=== PATIENT | male | born 1965 | race Caucasian/White ===

== ENCOUNTER 2017-12-31 11:59 | Inpatient (IN) | payer BC ==
[~2017-12-31] VITALS: Ht 182.9 cm; Wt 95.1 kg
[2017-12-31] MEDS ORDERED: normal saline 1000ML IV soln IV ONE (12:20)
[2017-12-31 12:47] LABS: BASOPHILS % (AUTO) 0.4 % (0-1); EOSINOPHILS # (AUTO) 0.3 X10'3 (0-0.9); EOSINOPHILS % (AUTO) 2.3 % (0-6); HEMATOCRIT 51.6 % (42.0-52.0); HEMOGLOBIN 17.4 g/dl (14.0-17.9); LYMPHOCYTES # (AUTO) 1.1 X10'3 (1.1-4.8); LYMPHOCYTES % (AUTO) 9.6 % (21-51); MEAN CORPUSCULAR HEMOGLOBIN 29.6 PG (27.0-31.0); MEAN CORPUSCULAR HGB CONC 33.8 % (33.0-36.5); MEAN CORPUSCULAR VOLUME 87.7 FL (78-98); MEAN PLATELET VOLUME 8.8 FL (7.4-10.4); MONOCYTES # (AUTO) 0.5 X10'3 (0-0.9); MONOCYTES % (AUTO) 4.7 % (2-12); NEUTROPHILS # (AUTO) 9.3 X10'3 (1.8-7.7); PLATELET COUNT 266 X10'3 (140-440); RED BLOOD COUNT 5.88 X10'6 (4.70-6.10); RED CELL DISTRIBUTION WIDTH 15.6 % (11.5-14.5); WHITE BLOOD COUNT 11.2 X10'3 (4.5-11.0)
[2017-12-31] MEDS ORDERED: metoprolol tartrate 1mg/ml inj IV ONE (13:05)
[2017-12-31 13:10] LABS: ALANINE AMINOTRANSFERASE 29 U/L (12-78); ALBUMIN 3.5 G/DL (3.4-5.0); ALBUMIN/GLOBULIN RATIO 0.8 (1.1-1.5); ALKALINE PHOSPHATASE 107 IU/L (46-116); ANION GAP 14 (8-16); ASPARTATE AMINO TRANSFERASE 17 U/L (10-37); BILIRUBIN,TOTAL 0.9 MG/DL (0.1-1.0); BLOOD UREA NITROGEN 33 MG/DL (7-18); BUN/CREATININE RATIO 17.6 (5.4-32.0); CALCIUM 9.6 MG/DL (8.5-10.1); CHLORIDE 107 MMOL/L (99-107); CREATINE KINASE 89 U/L (39-308); CREATININE 1.88 MG/DL (0.60-1.10); ETHANOL < 0.010 GM/DL (0.0-0.010); GLUCOSE 133 MG/DL (70-104); POTASSIUM 3.6 MMOL/L (3.5-5.1); SODIUM 142 MMOL/L (135-145); TOTAL CARBON DIOXIDE 20.7 MMOL/L (24-32); TOTAL PROTEIN 7.7 G/DL (6.4-8.2); eGFR 38 ML/MIN
[2017-12-31] MEDS ORDERED: LORazepam 2 mg/ml vial IV ONE (13:10)
[2017-12-31 14:21] LABS: CLARITY,URINE CLEAR (Clear); COLOR,URINE STRAW (Yellow); GLUCOSE, URINE NEGATIVE (Neg); KETONES,URINE NEGATIVE (Neg); LEUKOCYTE ESTERASE ,URINE NEGATIVE (Neg); NITRITES, URINE NEGATIVE (Neg); OCCULT BLOOD,URINE NEGATIVE (Neg); PH,URINE 7.5 (4.8-8.0); PROTEIN,URINE TRACE mg/dl (Neg); UROBILINOGEN,URINE 0.2 E.U/dL (0.2-1.0)
[2017-12-31] MEDS ORDERED: cloNIDine 0.1 mg tablet PO ONE (14:25)
[2017-12-31 14:29] LABS: UA COLLECTION TYPE STRAIGHT CATH
[2017-12-31 14:31] LABS: BACTERIA,URINE NONE SEEN /HPF (Neg); RBC,URINE NONE SEEN /HPF (0-2); SQUAMOUS EPITHELIAL CELL,UR NONE SEEN /LPF (FEW); WBC,URINE 0-4 /HPF (0-4)
[2017-12-31 14:33] LABS: URINE AMPHETAMINE SCREEN NEGATIVE (Neg); URINE BARBITUATE SCREEN NEGATIVE (Neg); URINE BENZODIAZEPINES SCREEN NEGATIVE (Neg); URINE CANNABINOID SCREEN POSITIVE (Neg); URINE COCAINE SCREEN NEGATIVE (Neg); URINE METHADONE SCREEN NEGATIVE (Neg); URINE OPIATE SCREEN NEGATIVE (Neg); URINE PHENCYCLIDINE SCREEN NEGATIVE (Neg)
[2017-12-31] MEDS: niCARDipine/sod cl 20mg/200ml 200 ML IV SCH ×4 (15:51→22:15)
[2017-12-31] MEDS ORDERED: potassium Cl 20 mEq SR tablet PO PRN ×2 (16:40)
[2017-12-31] MEDS ORDERED: morphine 4 MG/ML inj SYRINge IV PRN ×2 (16:40)
[2017-12-31] MEDS ORDERED: potassium Cl 40MEQ/NS 500ml 500 ML IV PRN ×2 (16:40)
[2017-12-31] MEDS ORDERED: HYDROcodone/acetaminophen 10/325mg tab PO PRN (16:40)
[2017-12-31] MEDS ORDERED: acetaminophen 325mg tablet PO PRN (16:40)
[2017-12-31] MEDS ORDERED: niCARDipine/sod cl 20mg/200ml 200 ML IV SCH (16:40)
[2017-12-31] MEDS ORDERED: ondansetron/PF 4mg/2ml inj IV PRN (16:40)
[2017-12-31] MEDS ORDERED: NO HOME MEDS (17:49)
[2017-12-31 19:00] VITALS: BP 188/100
[2017-12-31] MEDS: amLODIPine 5mg tablet PO SCH (19:12)
[2017-12-31] MEDS: acetaminophen 325mg tablet PO PRN (19:12)
[2017-12-31 20:00] VITALS: BP 149/89
[2017-12-31 21:00] VITALS: BP 125/69
[2017-12-31] MEDS: docusate sod 100mg capsule PO SCH (21:21)
[2017-12-31] MEDS: normal saline 1000ml 1,000 ML IV SCH (21:21)
[2017-12-31] MEDS: heparin, porcine 5000 units/ml vial SQ SCH (21:33)
[2017-12-31 22:00] VITALS: BP 150/81
[2017-12-31 23:00] VITALS: BP 140/71
[2018-01-01] VITALS (25 sets, daily range): BP systolic 106–229; BP diastolic 58–123
[2018-01-01 03:13] LABS: ALANINE AMINOTRANSFERASE 25 U/L (12-78); ALBUMIN 3.1 G/DL (3.4-5.0); ALBUMIN/GLOBULIN RATIO 0.8 (1.1-1.5); ALKALINE PHOSPHATASE 94 IU/L (46-116); ANION GAP 13 (8-16); BLOOD UREA NITROGEN 23 MG/DL (7-18); CALCIUM 8.1 MG/DL (8.5-10.1); CHLORIDE 108 MMOL/L (99-107); CREATININE 1.35 MG/DL (0.60-1.10); GLUCOSE 88 MG/DL (70-104); SODIUM 144 MMOL/L (135-145); TOTAL CARBON DIOXIDE 23.1 MMOL/L (24-32); TOTAL PROTEIN 7.1 G/DL (6.4-8.2); eGFR 55 ML/MIN
[2018-01-01 03:15] LABS: ASPARTATE AMINO TRANSFERASE 23 U/L (10-37); POTASSIUM 4.1 MMOL/L (3.5-5.1)
[2018-01-01 03:16] LABS: MAGNESIUM 1.8 MG/DL (1.5-2.4); PHOSPHORUS 3.4 MG/DL (2.3-4.5); TROPONIN I < 0.04 NG/ML (0.0-0.05)
[2018-01-01 05:02] LABS: BASOPHILS % (AUTO) 0 % (0-1); EOSINOPHILS # (AUTO) 0.2 X10'3 (0-0.9); EOSINOPHILS % (AUTO) 1.6 % (0-6); HEMATOCRIT 46.9 % (42.0-52.0); HEMOGLOBIN 15.8 g/dl (14.0-17.9); LYMPHOCYTES # (AUTO) 1.8 X10'3 (1.1-4.8); LYMPHOCYTES % (AUTO) 13.6 % (21-51); MEAN CORPUSCULAR HEMOGLOBIN 29.4 PG (27.0-31.0); MEAN CORPUSCULAR HGB CONC 33.7 % (33.0-36.5); MEAN CORPUSCULAR VOLUME 87.3 FL (78-98); MEAN PLATELET VOLUME 9.4 FL (7.4-10.4); MONOCYTES # (AUTO) 0.9 X10'3 (0-0.9); MONOCYTES % (AUTO) 6.5 % (2-12); NEUTROPHILS # (AUTO) 10.4 X10'3 (1.8-7.7); NEUTROPHILS % (AUTO) 78.3 % (42-75); PLATELET COUNT 236 X10'3 (140-440); RED BLOOD COUNT 5.37 X10'6 (4.70-6.10); RED CELL DISTRIBUTION WIDTH 15.2 % (11.5-14.5); WHITE BLOOD COUNT 13.3 X10'3 (4.5-11.0)
[2018-01-01] MEDS: normal saline 1000ml 1,000 ML IV SCH (05:56)
[2018-01-01] MEDS: niCARDipine/sod cl 20mg/200ml 200 ML IV SCH ×6 (07:10→23:11)
[2018-01-01] MEDS: docusate sod 100mg capsule PO SCH ×2 (07:41→20:03)
[2018-01-01] MEDS: amLODIPine 5mg tablet PO SCH ×2 (07:41→20:03)
[2018-01-01] MEDS: heparin, porcine 5000 units/ml vial SQ SCH ×2 (07:42→20:02)
[2018-01-01] MEDS: pantoprazole 40 MG vial IV SCH (12:52)
[2018-01-01] MEDS: minoxidil 2.5mg tablet PO PRN (16:29)
[2018-01-02] VITALS (24 sets, daily range): BP systolic 112–196; BP diastolic 62–108
[2018-01-02] MEDS: normal saline 1000ml 1,000 ML IV SCH ×3 (01:44→19:02)
[2018-01-02] MEDS: niCARDipine/sod cl 20mg/200ml 200 ML IV SCH ×6 (03:50→23:19)
[2018-01-02 05:10] LABS: BASOPHILS # (AUTO) 0.1 X10'3 (0-0.2); BASOPHILS % (AUTO) 0.8 % (0-1); EOSINOPHILS # (AUTO) 0.5 X10'3 (0-0.9); EOSINOPHILS % (AUTO) 4.3 % (0-6); HEMATOCRIT 48.4 % (42.0-52.0); HEMOGLOBIN 16.3 g/dl (14.0-17.9); LYMPHOCYTES # (AUTO) 1.4 X10'3 (1.1-4.8); LYMPHOCYTES % (AUTO) 12.7 % (21-51); MEAN CORPUSCULAR HEMOGLOBIN 29.3 PG (27.0-31.0); MEAN CORPUSCULAR HGB CONC 33.6 % (33.0-36.5); MONOCYTES # (AUTO) 0.7 X10'3 (0-0.9); MONOCYTES % (AUTO) 6.4 % (2-12); NEUTROPHILS # (AUTO) 8.6 X10'3 (1.8-7.7); NEUTROPHILS % (AUTO) 75.8 % (42-75); PLATELET COUNT 266 X10'3 (140-440); RED BLOOD COUNT 5.57 X10'6 (4.70-6.10); RED CELL DISTRIBUTION WIDTH 15.2 % (11.5-14.5); WHITE BLOOD COUNT 11.3 X10'3 (4.5-11.0)
[2018-01-02 05:26] LABS: CHLORIDE 107 MMOL/L (99-107); POTASSIUM 3.4 MMOL/L (3.5-5.1)
[2018-01-02 06:01] LABS: ALANINE AMINOTRANSFERASE 29 U/L (12-78); ALBUMIN/GLOBULIN RATIO 0.8 (1.1-1.5); ALKALINE PHOSPHATASE 87 IU/L (46-116); ANION GAP 10 (8-16); ASPARTATE AMINO TRANSFERASE 18 U/L (10-37); BILIRUBIN,TOTAL 0.9 MG/DL (0.1-1.0); BLOOD UREA NITROGEN 20 MG/DL (7-18); CALCIUM 8.3 MG/DL (8.5-10.1); CREATININE 1.33 MG/DL (0.60-1.10); GLUCOSE 89 MG/DL (70-104); MAGNESIUM 1.7 MG/DL (1.5-2.4); PHOSPHORUS 2.2 MG/DL (2.3-4.5); SODIUM 140 MMOL/L (135-145); TOTAL CARBON DIOXIDE 23.2 MMOL/L (24-32); TOTAL PROTEIN 6.9 G/DL (6.4-8.2); eGFR 56 ML/MIN
[2018-01-02] MEDS: heparin, porcine 5000 units/ml vial SQ SCH ×2 (07:52→20:08)
[2018-01-02] MEDS: pantoprazole 40 MG vial IV SCH (07:52)
[2018-01-02] MEDS: amLODIPine 5mg tablet PO SCH ×2 (07:53→20:08)
[2018-01-02] MEDS: docusate sod 100mg capsule PO SCH ×2 (07:53→20:08)
[2018-01-02] MEDS ORDERED: LORazepam 2 mg/ml vial IV PRN (10:40)
[2018-01-02] MEDS: minoxidil 2.5mg tablet PO PRN (15:10)
[2018-01-02] MEDS ORDERED: labetalol 100mg tablet PO SCH (20:00)
[2018-01-02] MEDS: labetalol 100mg tablet PO SCH (20:08)
[2018-01-03] VITALS (24 sets, daily range): BP systolic 118–178; BP diastolic 64–102
[2018-01-03] MEDS: niCARDipine/sod cl 20mg/200ml 200 ML IV SCH ×5 (01:58→23:10)
[2018-01-03 04:49] LABS: BASOPHILS % (AUTO) 0.3 % (0-1); EOSINOPHILS # (AUTO) 0.3 X10'3 (0-0.9); EOSINOPHILS % (AUTO) 2.4 % (0-6); HEMATOCRIT 47.9 % (42.0-52.0); HEMOGLOBIN 16.1 g/dl (14.0-17.9); LYMPHOCYTES # (AUTO) 1.3 X10'3 (1.1-4.8); LYMPHOCYTES % (AUTO) 10.4 % (21-51); MEAN CORPUSCULAR HEMOGLOBIN 29.5 PG (27.0-31.0); MEAN CORPUSCULAR HGB CONC 33.6 % (33.0-36.5); MEAN CORPUSCULAR VOLUME 87.8 FL (78-98); MEAN PLATELET VOLUME 9.2 FL (7.4-10.4); MONOCYTES # (AUTO) 0.8 X10'3 (0-0.9); MONOCYTES % (AUTO) 6.1 % (2-12); NEUTROPHILS # (AUTO) 10.2 X10'3 (1.8-7.7); NEUTROPHILS % (AUTO) 80.8 % (42-75); PLATELET COUNT 256 X10'3 (140-440); RED BLOOD COUNT 5.46 X10'6 (4.70-6.10); RED CELL DISTRIBUTION WIDTH 14.9 % (11.5-14.5); WHITE BLOOD COUNT 12.6 X10'3 (4.5-11.0)
[2018-01-03 05:03] LABS: ALANINE AMINOTRANSFERASE 34 U/L (12-78); ALBUMIN 2.9 G/DL (3.4-5.0); ALBUMIN/GLOBULIN RATIO 0.7 (1.1-1.5); ALKALINE PHOSPHATASE 90 IU/L (46-116); ANION GAP 9 (8-16); ASPARTATE AMINO TRANSFERASE 17 U/L (10-37); BILIRUBIN,TOTAL 0.7 MG/DL (0.1-1.0); BLOOD UREA NITROGEN 23 MG/DL (7-18); BUN/CREATININE RATIO 15.2 (5.4-32.0); CALCIUM 8.7 MG/DL (8.5-10.1); CHLORIDE 108 MMOL/L (99-107); CREATININE 1.51 MG/DL (0.60-1.10); GLUCOSE 120 MG/DL (70-104); MAGNESIUM 1.8 MG/DL (1.5-2.4); PHOSPHORUS 2.5 MG/DL (2.3-4.5); POTASSIUM 3.6 MMOL/L (3.5-5.1); SODIUM 140 MMOL/L (135-145); TOTAL CARBON DIOXIDE 22.7 MMOL/L (24-32); TOTAL PROTEIN 6.9 G/DL (6.4-8.2); eGFR 49 ML/MIN
[2018-01-03] MEDS: pantoprazole 40mg Tablet.DR PO SCH (09:57)
[2018-01-03] MEDS: docusate sod 100mg capsule PO SCH ×2 (09:57→20:13)
[2018-01-03] MEDS: amLODIPine 5mg tablet PO SCH ×2 (09:57→20:14)
[2018-01-03] MEDS: labetalol 100mg tablet PO SCH ×3 (09:58→20:14)
[2018-01-03] MEDS: heparin, porcine 5000 units/ml vial SQ SCH ×2 (10:03→20:14)
[2018-01-03] MEDS: normal saline 1000ml 1,000 ML IV SCH (13:40)
[2018-01-03] MEDS: acetaminophen 325mg tablet PO PRN (18:13)
[2018-01-04] VITALS (24 sets, daily range): BP systolic 134–170; BP diastolic 68–98
[2018-01-04] MEDS: normal saline 1000ml 1,000 ML IV SCH (01:40)
[2018-01-04] MEDS: niCARDipine/sod cl 20mg/200ml 200 ML IV SCH ×2 (03:10→07:10)
[2018-01-04 05:41] LABS: BASOPHILS % (AUTO) 0.3 % (0-1); EOSINOPHILS # (AUTO) 0.3 X10'3 (0-0.9); EOSINOPHILS % (AUTO) 2.3 % (0-6); HEMOGLOBIN 15.2 g/dl (14.0-17.9); LYMPHOCYTES % (AUTO) 16.9 % (21-51); MEAN CORPUSCULAR HEMOGLOBIN 29.6 PG (27.0-31.0); MEAN CORPUSCULAR HGB CONC 33.8 % (33.0-36.5); MEAN CORPUSCULAR VOLUME 87.6 FL (78-98); MEAN PLATELET VOLUME 9.4 FL (7.4-10.4); MONOCYTES # (AUTO) 0.9 X10'3 (0-0.9); MONOCYTES % (AUTO) 7.3 % (2-12); NEUTROPHILS # (AUTO) 8.7 X10'3 (1.8-7.7); NEUTROPHILS % (AUTO) 73.2 % (42-75); PLATELET COUNT 264 X10'3 (140-440); RED BLOOD COUNT 5.14 X10'6 (4.70-6.10); RED CELL DISTRIBUTION WIDTH 15.3 % (11.5-14.5); WHITE BLOOD COUNT 11.9 X10'3 (4.5-11.0)
[2018-01-04 06:36] LABS: ALANINE AMINOTRANSFERASE 54 U/L (12-78); ALBUMIN 2.8 G/DL (3.4-5.0); ALBUMIN/GLOBULIN RATIO 0.7 (1.1-1.5); ALKALINE PHOSPHATASE 82 IU/L (46-116); ANION GAP 10 (8-16); ASPARTATE AMINO TRANSFERASE 31 U/L (10-37); BILIRUBIN,TOTAL 0.8 MG/DL (0.1-1.0); BLOOD UREA NITROGEN 23 MG/DL (7-18); BUN/CREATININE RATIO 15.5 (5.4-32.0); CALCIUM 8.7 MG/DL (8.5-10.1); CHLORIDE 107 MMOL/L (99-107); CREATININE 1.48 MG/DL (0.60-1.10); GLUCOSE 88 MG/DL (70-104); MAGNESIUM 1.8 MG/DL (1.5-2.4); PHOSPHORUS 3.1 MG/DL (2.3-4.5); POTASSIUM 3.4 MMOL/L (3.5-5.1); SODIUM 139 MMOL/L (135-145); TOTAL CARBON DIOXIDE 21.7 MMOL/L (24-32); TOTAL PROTEIN 6.7 G/DL (6.4-8.2); eGFR 50 ML/MIN
[2018-01-04] MEDS: pantoprazole 40mg Tablet.DR PO SCH (07:23)
[2018-01-04] MEDS: amLODIPine 5mg tablet PO SCH ×2 (07:23→20:37)
[2018-01-04] MEDS: labetalol 100mg tablet PO SCH ×3 (07:23→20:34)
[2018-01-04] MEDS: docusate sod 100mg capsule PO SCH ×2 (07:24→20:34)
[2018-01-04] MEDS: heparin, porcine 5000 units/ml vial SQ SCH ×2 (07:24→20:34)
[2018-01-05] VITALS (16 sets, daily range): BP systolic 122–173; BP diastolic 69–106
[2018-01-05 05:17] LABS: BASOPHILS % (AUTO) 0.3 % (0-1); EOSINOPHILS # (AUTO) 0.4 X10'3 (0-0.9); EOSINOPHILS % (AUTO) 3.7 % (0-6); HEMATOCRIT 44.8 % (42.0-52.0); HEMOGLOBIN 15.2 g/dl (14.0-17.9); LYMPHOCYTES # (AUTO) 1.7 X10'3 (1.1-4.8); LYMPHOCYTES % (AUTO) 16.3 % (21-51); MEAN CORPUSCULAR HEMOGLOBIN 29.7 PG (27.0-31.0); MEAN CORPUSCULAR HGB CONC 33.9 % (33.0-36.5); MEAN CORPUSCULAR VOLUME 87.6 FL (78-98); MEAN PLATELET VOLUME 8.7 FL (7.4-10.4); MONOCYTES # (AUTO) 0.8 X10'3 (0-0.9); MONOCYTES % (AUTO) 7.3 % (2-12); NEUTROPHILS # (AUTO) 7.5 X10'3 (1.8-7.7); NEUTROPHILS % (AUTO) 72.4 % (42-75); PLATELET COUNT 274 X10'3 (140-440); RED BLOOD COUNT 5.11 X10'6 (4.70-6.10); RED CELL DISTRIBUTION WIDTH 15.1 % (11.5-14.5); WHITE BLOOD COUNT 10.3 X10'3 (4.5-11.0)
[2018-01-05 06:00] LABS: ALANINE AMINOTRANSFERASE 81 U/L (12-78); ALBUMIN 2.7 G/DL (3.4-5.0); ALBUMIN/GLOBULIN RATIO 0.7 (1.1-1.5); ALKALINE PHOSPHATASE 80 IU/L (46-116); ANION GAP 9 (8-16); ASPARTATE AMINO TRANSFERASE 42 U/L (10-37); BILIRUBIN,TOTAL 0.7 MG/DL (0.1-1.0); BLOOD UREA NITROGEN 22 MG/DL (7-18); BUN/CREATININE RATIO 14.9 (5.4-32.0); CALCIUM 8.8 MG/DL (8.5-10.1); CHLORIDE 107 MMOL/L (99-107); CREATININE 1.48 MG/DL (0.60-1.10); GLUCOSE 97 MG/DL (70-104); MAGNESIUM 1.9 MG/DL (1.5-2.4); POTASSIUM 3.7 MMOL/L (3.5-5.1); SODIUM 139 MMOL/L (135-145); TOTAL CARBON DIOXIDE 22.6 MMOL/L (24-32); TOTAL PROTEIN 6.6 G/DL (6.4-8.2); eGFR 50 ML/MIN
[2018-01-05] MEDS: amLODIPine 5mg tablet PO SCH ×2 (08:01→20:59)
[2018-01-05] MEDS: pantoprazole 40mg Tablet.DR PO SCH (08:01)
[2018-01-05] MEDS: labetalol 100mg tablet PO SCH ×3 (08:01→20:59)
[2018-01-05] MEDS: docusate sod 100mg capsule PO SCH ×2 (08:01→20:59)
[2018-01-05] MEDS: heparin, porcine 5000 units/ml vial SQ SCH ×2 (08:02→21:01)
[2018-01-05] MEDS ORDERED: epoetin 20,000 units/ml inj SQ ONE (11:25)
[2018-01-06 06:00] VITALS: BP 155/95
[2018-01-06 06:33] LABS: BASOPHILS % (AUTO) 0.4 % (0-1); EOSINOPHILS # (AUTO) 0.4 X10'3 (0-0.9); EOSINOPHILS % (AUTO) 3.5 % (0-6); HEMOGLOBIN 15.3 g/dl (14.0-17.9); LYMPHOCYTES # (AUTO) 1.7 X10'3 (1.1-4.8); MEAN CORPUSCULAR HEMOGLOBIN 29.4 PG (27.0-31.0); MEAN CORPUSCULAR HGB CONC 33.3 % (33.0-36.5); MEAN CORPUSCULAR VOLUME 88.4 FL (78-98); MEAN PLATELET VOLUME 8.2 FL (7.4-10.4); MONOCYTES # (AUTO) 0.7 X10'3 (0-0.9); MONOCYTES % (AUTO) 6.6 % (2-12); NEUTROPHILS # (AUTO) 7.8 X10'3 (1.8-7.7); NEUTROPHILS % (AUTO) 73.5 % (42-75); PLATELET COUNT 278 X10'3 (140-440); RED CELL DISTRIBUTION WIDTH 15.4 % (11.5-14.5); WHITE BLOOD COUNT 10.6 X10'3 (4.5-11.0)
[2018-01-06 06:55] LABS: ALANINE AMINOTRANSFERASE 83 U/L (12-78); ALBUMIN 2.8 G/DL (3.4-5.0); ALBUMIN/GLOBULIN RATIO 0.7 (1.1-1.5); ALKALINE PHOSPHATASE 78 IU/L (46-116); ANION GAP 6 (8-16); ASPARTATE AMINO TRANSFERASE 35 U/L (10-37); BILIRUBIN,TOTAL 0.7 MG/DL (0.1-1.0); BLOOD UREA NITROGEN 25 MG/DL (7-18); BUN/CREATININE RATIO 16.2 (5.4-32.0); CALCIUM 8.8 MG/DL (8.5-10.1); CHLORIDE 107 MMOL/L (99-107); CREATININE 1.54 MG/DL (0.60-1.10); GLUCOSE 94 MG/DL (70-104); MAGNESIUM 1.9 MG/DL (1.5-2.4); PHOSPHORUS 3.3 MG/DL (2.3-4.5); POTASSIUM 3.6 MMOL/L (3.5-5.1); SODIUM 138 MMOL/L (135-145); TOTAL PROTEIN 6.8 G/DL (6.4-8.2); eGFR 47 ML/MIN
[2018-01-06] MEDS: heparin, porcine 5000 units/ml vial SQ SCH (08:34)
[2018-01-06] MEDS: labetalol 100mg tablet PO SCH (08:36)
[2018-01-06] MEDS: amLODIPine 5mg tablet PO SCH (08:37)
[2018-01-06] MEDS: docusate sod 100mg capsule PO SCH (08:38)
[2018-01-06] MEDS: pantoprazole 40mg Tablet.DR PO SCH (08:38)
[2018-01-06] MEDS ORDERED: MINO2.5T19 PO (09:44)
[2018-01-06] MEDS ORDERED: AMLO5TAB16 PO (09:44)
[2018-01-06] MEDS ORDERED: LABE100T PO (09:44)
== END 2018-01-06 10:30 | disposition home or self-care (01) | DRG 78 ==
LOC: ER 12:00 → ICU 2S 16:36 → ORTHO 4S 01-05 12:22
PROVIDERS: ADMIT Internal Medicine Critical Care Medicine; ATTEND Internal Medicine Critical Care Medicine
PROC: 4A02XM4 Measurement of Cardiac Total Activity, External Approach (ICD-10-PCS; principal; 2018-01-03)
PROC: 3E033HZ Introduction of Radioactive Substance into Peripheral Vein, Percutaneous Approach (ICD-10-PCS; 2018-01-03)
DX: I67.4 Hypertensive encephalopathy (principal); I43 Cardiomyopathy in diseases classified elsewhere; N17.9 Acute kidney failure, unspecified; G80.9 Cerebral palsy, unspecified; I16.0 Hypertensive urgency; N18.2 Chronic kidney disease, stage 2 (mild); I13.10 Hypertensive heart and chronic kidney disease without heart failure, with stage 1 through stage 4 chronic kidney disease, or unspecified chronic kidney disease; R50.9 Fever, unspecified; Z91.14 Patient's other noncompliance with medication regimen
CPT/HCPCS: 36415; 70450; 71045; 76775; 78707; 80053; 80305; 80320; 81001; 82140; 82550; 83605; 83735; 84100; 84145; 84484; 85025; 87040; 93005; 96361; 96374; 96375; 97116; 97161; 97530; 99291; A4353; A6213; A6449; A9562; C9113; J1644; J2060; J3490; J7030

== ENCOUNTER 2019-07-25 13:25 | Inpatient (IN) | payer BC, MEDICAID ==
[~2019-07-25] VITALS: Ht 182.9 cm; Wt 95.0 kg
[~2019-07-25 13:25] MED LIST: BUPR150T8 PO; LISI40TA4 PO
[2019-07-25] MEDS ORDERED: labetalol 20mg/4ml (5mg/ml) syringe IV ONE ×3 (15:35→16:40)
[2019-07-25 15:58] LABS: BASOPHILS # (AUTO) 0.1 X10'3 (0-0.2); BASOPHILS % (AUTO) 0.5 % (0-1); EOSINOPHILS # (AUTO) 0.5 X10'3 (0-0.9); EOSINOPHILS % (AUTO) 3.5 % (0-6); HEMATOCRIT 54.3 % (42.0-52.0); LYMPHOCYTES # (AUTO) 2.2 X10'3 (1.1-4.8); LYMPHOCYTES % (AUTO) 17.3 % (21-51); MEAN CORPUSCULAR HGB CONC 34.1 g/dL (33.0-36.5); MEAN CORPUSCULAR VOLUME 88.2 FL (78-98); MEAN PLATELET VOLUME 8.4 FL (7.4-10.4); MONOCYTES # (AUTO) 0.7 X10'3 (0-0.9); MONOCYTES % (AUTO) 5.9 % (2-12); NEUTROPHILS # (AUTO) 9.3 X10'3 (1.8-7.7); NEUTROPHILS % (AUTO) 72.8 % (42-75); PLATELET COUNT 314 X10'3 (140-440); RED BLOOD COUNT 6.15 X10'6 (4.70-6.10); RED CELL DISTRIBUTION WIDTH 15.9 % (11.5-14.5); WHITE BLOOD COUNT 12.8 X10'3 (4.5-11.0)
[2019-07-25 16:00] LABS: HEMOGLOBIN 18.5 g/dl (14.0-17.9)
[2019-07-25] MEDS ORDERED: cloNIDine 0.1 mg tablet PO ONE (16:05)
[2019-07-25 16:13] LABS: ALANINE AMINOTRANSFERASE 31 U/L (12-78); ALBUMIN 3.4 G/DL (3.4-5.0); ALBUMIN/GLOBULIN RATIO 0.9 (1.1-1.5); ALKALINE PHOSPHATASE 100 IU/L (46-116); ANION GAP 9 (8-16); ASPARTATE AMINO TRANSFERASE 22 U/L (10-37); BILIRUBIN,TOTAL 0.7 MG/DL (0.1-1.0); BLOOD UREA NITROGEN 28 MG/DL (7-18); BUN/CREATININE RATIO 17.3 (5.4-32.0); CALCIUM 9.2 MG/DL (8.5-10.1); CHLORIDE 106 MMOL/L (99-107); CREATININE 1.62 MG/DL (0.60-1.10); GLUCOSE 93 MG/DL (70-104); POTASSIUM 3.6 MMOL/L (3.5-5.1); SODIUM 141 MMOL/L (135-145); TOTAL CARBON DIOXIDE 26.4 MMOL/L (24-32); TOTAL PROTEIN 7.4 G/DL (6.4-8.2); eGFR 45 ML/MIN
[2019-07-25] MEDS ORDERED: potassium CL 10mEq/100ml bag 100 ML IV PRN ×2 (17:00)
[2019-07-25] MEDS ORDERED: sodium phosphate inj. 30 MMOL in dextrose 5%-water 250 ML IV PRN (17:00)
[2019-07-25] MEDS ORDERED: magnesium 4gm in 100ml NS 100 ML IV PRN (17:00)
[2019-07-25] MEDS ORDERED: HYDROcodone/acetaminophen 5mg/325mg tablet PO PRN (17:00)
[2019-07-25] MEDS ORDERED: potassium Cl 20 mEq SR tablet PO PRN ×2 (17:00)
[2019-07-25] MEDS ORDERED: magnesium 2GM in 50ml NS 50 ML IV PRN (17:00)
[2019-07-25] MEDS ORDERED: acetaminophen 325mg tablet PO PRN (17:00)
[2019-07-25] MEDS ORDERED: Neutra Phos packet PO PRN (17:00)
[2019-07-25] MEDS ORDERED: sodium phosphate inj. 15 MMOL in dextrose 5%-water 250 ML IV PRN (17:00)
[2019-07-25] MEDS ORDERED: magnesium Cl slow-release 64mg tablet PO PRN (17:00)
[2019-07-25] MEDS: niCARDipine-NS 40mg/200ml IVPB 200 ML IV SCH (17:27)
--- NOTE | 2019-07-25 17:40 | NUR ---
received pt report from Juice BOYLE.
[2019-07-25 17:50] LABS: CLARITY,URINE CLEAR (Clear); COLOR,URINE YELLOW (Yellow); GLUCOSE, URINE NEGATIVE (Neg); KETONES,URINE NEGATIVE (Neg); LEUKOCYTE ESTERASE ,URINE NEGATIVE (Neg); NITRITES, URINE NEGATIVE (Neg); OCCULT BLOOD,URINE TRACE-LYSED (Neg); PH,URINE 5.5 (4.8-8.0); PROTEIN,URINE 100 mg/dl (Neg); UROBILINOGEN,URINE 0.2 E.U/dL (0.2-1.0)
[2019-07-25 17:54] LABS: UA COLLECTION TYPE CLN CATCH MIDSTREAM
[2019-07-25 17:55] LABS: BACTERIA,URINE NONE SEEN /HPF (Neg); MUCUS STRANDS FEW /LPF (Neg); RBC,URINE 0-2 /HPF (0-2); SQUAMOUS EPITHELIAL CELL,UR NONE SEEN /LPF (FEW); WBC,URINE NONE SEEN /HPF (0-4)
--- NOTE | 2019-07-25 17:55 | NUR ---
pt arrived to unit via gurney with cardene running @5 and transferred to hospital bed; VSS. optifoam in place and started running 1/2NS per orders. 2 RN skin check performed with Annmarie BOYLE.
[2019-07-25 17:56] LABS: SPERM FEW /HPF (NEGATIVE)
[2019-07-25 18:00] LABS: TOTAL PROTEIN,URINE RANDOM 75.1 MG/DL
[2019-07-25 18:01] VITALS: BP 136/63
[2019-07-25] MEDS: sodium chloride 0.45% 1,000 ML IV SCH (18:08)
[2019-07-25] MEDS ORDERED: albuterol 2.5 MG/3 ML nebule NEB PRN (18:40)
[2019-07-25 19:00] VITALS: BP 134/79
[2019-07-25] MEDS: heparin, porcine 5000 units/ml vial SQ SCH (19:57)
[2019-07-25] MEDS: famotidine 20mg tablet PO SCH (19:57)
[2019-07-25] MEDS: docusate sod 100mg capsule PO SCH (19:59)
[2019-07-25 20:00] VITALS: BP 151/93
[2019-07-25 21:00] VITALS: BP 143/89
[2019-07-25 22:00] VITALS: BP 137/70
[2019-07-25 23:00] VITALS: BP 112/70
[2019-07-26] VITALS (24 sets, daily range): BP systolic 126–178; BP diastolic 76–104
[2019-07-26 05:27] LABS: BASOPHILS # (AUTO) 0.1 X10'3 (0-0.2); BASOPHILS % (AUTO) 0.7 % (0-1); EOSINOPHILS # (AUTO) 0.4 X10'3 (0-0.9); EOSINOPHILS % (AUTO) 4.1 % (0-6); HEMATOCRIT 52.8 % (42.0-52.0); HEMOGLOBIN 17.9 g/dl (14.0-17.9); LYMPHOCYTES # (AUTO) 1.8 X10'3 (1.1-4.8); LYMPHOCYTES % (AUTO) 16.7 % (21-51); MEAN CORPUSCULAR HEMOGLOBIN 29.7 PG (27.0-31.0); MEAN CORPUSCULAR HGB CONC 33.9 g/dL (33.0-36.5); MEAN CORPUSCULAR VOLUME 87.6 FL (78-98); MEAN PLATELET VOLUME 8.8 FL (7.4-10.4); MONOCYTES # (AUTO) 0.7 X10'3 (0-0.9); MONOCYTES % (AUTO) 6.3 % (2-12); NEUTROPHILS # (AUTO) 7.9 X10'3 (1.8-7.7); NEUTROPHILS % (AUTO) 72.2 % (42-75); PLATELET COUNT 308 X10'3 (140-440); RED BLOOD COUNT 6.03 X10'6 (4.70-6.10); RED CELL DISTRIBUTION WIDTH 15.9 % (11.5-14.5); WHITE BLOOD COUNT 10.9 X10'3 (4.5-11.0)
[2019-07-26 05:46] LABS: ALANINE AMINOTRANSFERASE 32 U/L (12-78); ALBUMIN 3.1 G/DL (3.4-5.0); ALBUMIN/GLOBULIN RATIO 0.9 (1.1-1.5); ALKALINE PHOSPHATASE 92 IU/L (46-116); ANION GAP 7 (8-16); ASPARTATE AMINO TRANSFERASE 19 U/L (10-37); BILIRUBIN,TOTAL 1.2 MG/DL (0.1-1.0); BLOOD UREA NITROGEN 24 MG/DL (7-18); BUN/CREATININE RATIO 16.3 (5.4-32.0); CALCIUM 8.4 MG/DL (8.5-10.1); CHLORIDE 108 MMOL/L (99-107); CREATININE 1.47 MG/DL (0.60-1.10); GLUCOSE 97 MG/DL (70-104); POTASSIUM 3.5 MMOL/L (3.5-5.1); SODIUM 142 MMOL/L (135-145); TOTAL CARBON DIOXIDE 27.1 MMOL/L (24-32); TOTAL PROTEIN 6.7 G/DL (6.4-8.2); eGFR 50 ML/MIN
[2019-07-26 05:52] LABS: MAGNESIUM 1.9 MG/DL (1.5-2.4); PHOSPHORUS 2.5 MG/DL (2.3-4.5)
[2019-07-26] MEDS: niCARDipine-NS 40mg/200ml IVPB 200 ML IV SCH (06:08)
--- NOTE | 2019-07-26 06:30 | NUR ---
Patient in room ICU 2040. I have received report from Catalina BOYLE and had the opportunity to ask questions and assume patient care.
[2019-07-26] MEDS: sodium chloride 0.45% 1,000 ML IV SCH ×2 (06:51→19:36)
[2019-07-26] MEDS: K, MAG and/or Phos replacement - Verify level? MC SCH (06:52)
[2019-07-26] MEDS: famotidine 20mg tablet PO SCH ×2 (07:26→20:15)
[2019-07-26] MEDS: docusate sod 100mg capsule PO SCH ×2 (07:26→20:15)
[2019-07-26] MEDS: buPROPion SR 150mg tablet PO SCH (07:26)
[2019-07-26] MEDS: heparin, porcine 5000 units/ml vial SQ SCH ×2 (07:27→20:15)
[2019-07-26] MEDS: labetalol 100mg tablet PO SCH ×3 (09:15→18:49)
--- NOTE | 2019-07-26 09:51 | NUR ---
unable to administer labetalol because unverified by pharmacy.
--- NOTE | 2019-07-26 10:41 | NUR ---
labetalol verified by pharmacy; consulted with drawer waxerTAMAR Alvarado. will hold 0915 dose and administer 1330 dose.
--- NOTE | 2019-07-26 18:19 | NUR ---
Problems reprioritized. Patient report given, questions answered & plan of care reviewed with Bernardino BOYLE.
--- NOTE | 2019-07-26 20:00 | NUR ---
assessment essentially unchanged from previous shift. patient is appropriate and is compliant with calling me in the room when he steps oob to use urinal. denies pain or discomfort. c/o the cough that still remains. lungs essentially clear after patient coughs sm amt/swallows. i would describe the cough as rare at this point in the shift. SBP 178 and consistently btw 170-179 mmhg so i did give lopressor 20:00 dose early (at 18:49). since patient is not due for any HTN medications until 8 am, I plan to ask SPRING TACKER for PRN so cardene gtt can remain off. Conversation started re: his reasons for non-compliance with HTN medications at home. Reviewed that patient could have avoided this admission had he be taking them. Patients reasons are related to $ for meds, lack of insurance and reading bottles and following correctly and on time etc. i put in a consult for Social work to please assist with helping get [employer] cards and navigating through the health system to receive the benefits of the insurance.
--- NOTE | 2019-07-26 20:45 | NUR ---
spoke to nikita brandon np about a PRN for SBP> 170. Hydralazine is ordered. Also D/C 1/2 NS at 75 ml/hr
[2019-07-27] VITALS (24 sets, daily range): BP systolic 116–200; BP diastolic 72–123
--- NOTE | 2019-07-27 01:00 | NUR ---
patient accidently spilled pitcher of water in bed. patient to a chair with standby assist. bed remade while patient washed himself with chg wipes. Patient denies pain or distress. BP has been within acceptable parameters. Patient back to bed to sleep again
[2019-07-27 05:19] LABS: BASOPHILS # (AUTO) 0.1 X10'3 (0-0.2); EOSINOPHILS # (AUTO) 0.5 X10'3 (0-0.9); MONOCYTES # (AUTO) 0.6 X10'3 (0-0.9)
[2019-07-27 05:22] LABS: BASOPHILS % (AUTO) 0.9 % (0-1); EOSINOPHILS % (AUTO) 4.5 % (0-6); HEMATOCRIT 50.1 % (42.0-52.0); HEMOGLOBIN 17.1 g/dl (14.0-17.9); LYMPHOCYTES # (AUTO) 1.9 X10'3 (1.1-4.8); LYMPHOCYTES % (AUTO) 17.6 % (21-51); MEAN CORPUSCULAR HEMOGLOBIN 29.9 PG (27.0-31.0); MEAN CORPUSCULAR HGB CONC 34.2 g/dL (33.0-36.5); MEAN CORPUSCULAR VOLUME 87.5 FL (78-98); MEAN PLATELET VOLUME 8.7 FL (7.4-10.4); MONOCYTES % (AUTO) 5.8 % (2-12); NEUTROPHILS # (AUTO) 7.6 X10'3 (1.8-7.7); NEUTROPHILS % (AUTO) 71.2 % (42-75); PLATELET COUNT 308 X10'3 (140-440); RED BLOOD COUNT 5.73 X10'6 (4.70-6.10); RED CELL DISTRIBUTION WIDTH 15.3 % (11.5-14.5); WHITE BLOOD COUNT 10.7 X10'3 (4.5-11.0)
[2019-07-27 05:34] LABS: ALANINE AMINOTRANSFERASE 29 U/L (12-78); ALBUMIN/GLOBULIN RATIO 0.8 (1.1-1.5); ALKALINE PHOSPHATASE 86 IU/L (46-116); ANION GAP 8 (8-16); ASPARTATE AMINO TRANSFERASE 20 U/L (10-37); BILIRUBIN,TOTAL 1.1 MG/DL (0.1-1.0); BLOOD UREA NITROGEN 22 MG/DL (7-18); CALCIUM 8.9 MG/DL (8.5-10.1); CHLORIDE 108 MMOL/L (99-107); CREATININE 1.57 MG/DL (0.60-1.10); GLUCOSE 92 MG/DL (70-104); PHOSPHORUS 3.2 MG/DL (2.3-4.5); SODIUM 141 MMOL/L (135-145); TOTAL CARBON DIOXIDE 25.3 MMOL/L (24-32); TOTAL PROTEIN 6.6 G/DL (6.4-8.2); eGFR 46 ML/MIN
[2019-07-27 05:38] LABS: POTASSIUM 3.9 MMOL/L (3.5-5.1)
--- NOTE | 2019-07-27 06:30 | NUR ---
Patient in room ICU 2040. I have received report from Bernardino BOYLE and had the opportunity to ask questions and assume patient care.
[2019-07-27] MEDS: K, MAG and/or Phos replacement - Verify level? MC SCH (07:42)
[2019-07-27] MEDS: labetalol 100mg tablet PO SCH ×3 (07:48→19:49)
[2019-07-27] MEDS: docusate sod 100mg capsule PO SCH ×2 (07:48→19:50)
[2019-07-27] MEDS: buPROPion SR 150mg tablet PO SCH (07:48)
[2019-07-27] MEDS: famotidine 20mg tablet PO SCH ×2 (07:49→19:50)
[2019-07-27] MEDS: heparin, porcine 5000 units/ml vial SQ SCH ×2 (07:51→19:50)
[2019-07-27] MEDS: hydrALAZINE 20mg/ml inj. IV PRN (08:50)
[2019-07-27] MEDS: sodium chloride 0.45% 1,000 ML IV SCH (08:56)
[2019-07-27] MEDS: ondansetron/PF 4mg/2ml inj IV PRN (09:47)
[2019-07-27] MEDS: lisinopril 20mg tablet PO SCH (09:51)
[2019-07-27 14:11] LABS: ABG BASE EXCESS -2.4 mmol/L (-2.0-3.0); ABG HCO3 21.1 mmol/L (22.0-26.0); ABG OXYGEN SATURATION 96.1 % (95-98); ABG PCO2 (T) 33.6 mmHg (35.0-45.0); ABG PH (T) 7.415 (7.350-7.450); ALLEN'S TEST POSITIVE; FCOHb 0.5 % (0.5-1.5); FMetHb 0.3 % (0.3-1.12); FO2Hb 95.3 % (94-100); TOTAL HEMOGLOBIN 17.7 G/dl (14.0-17.9)
[2019-07-27] MEDS ORDERED: labetalol 100mg tablet PO SCH (16:00)
--- NOTE | 2019-07-27 16:00 | NUR ---
Discussed with Dr. Chapa that the patient's BP is 167/113 and he has a dose of labetalol due. Discussed that he stated during rounds that said he wants the patient's SBP to be between 170-180s due to his normal being above 200. He states that it is essential to consider their baseline and that if we drop BP too fast the patient's vascular perfusion to kidneys and other organs will be poor. Received order to change the labetalol to 400 mg BID. Will continue to monitor.
[2019-07-27] MEDS ORDERED: lactulose 20gm/30ml cup PO PRN (17:00)
--- NOTE | 2019-07-27 18:17 | NUR ---
Problems reprioritized. Patient report given, questions answered & plan of care reviewed with Bernardino BOYLE.
[2019-07-27] MEDS: acetaminophen 325mg tablet PO PRN (19:48)
[2019-07-27] MEDS: LORazepam 1 MG tablet PO PRN (19:50)
[2019-07-28] VITALS (33 sets, daily range): BP systolic 144–209; BP diastolic 79–128
[2019-07-28 05:33] LABS: BASOPHILS # (AUTO) 0.1 X10'3 (0-0.2); BASOPHILS % (AUTO) 0.7 % (0-1); EOSINOPHILS # (AUTO) 0.4 X10'3 (0-0.9); EOSINOPHILS % (AUTO) 3.4 % (0-6); HEMATOCRIT 50.1 % (42.0-52.0); HEMOGLOBIN 16.9 g/dl (14.0-17.9); LYMPHOCYTES # (AUTO) 1.7 X10'3 (1.1-4.8); LYMPHOCYTES % (AUTO) 15.2 % (21-51); MEAN CORPUSCULAR HEMOGLOBIN 29.8 PG (27.0-31.0); MEAN CORPUSCULAR HGB CONC 33.8 g/dL (33.0-36.5); MEAN CORPUSCULAR VOLUME 88.2 FL (78-98); MEAN PLATELET VOLUME 8.8 FL (7.4-10.4); MONOCYTES # (AUTO) 0.7 X10'3 (0-0.9); MONOCYTES % (AUTO) 6.5 % (2-12); NEUTROPHILS # (AUTO) 8.4 X10'3 (1.8-7.7); NEUTROPHILS % (AUTO) 74.2 % (42-75); PLATELET COUNT 293 X10'3 (140-440); RED BLOOD COUNT 5.68 X10'6 (4.70-6.10); RED CELL DISTRIBUTION WIDTH 16.4 % (11.5-14.5); WHITE BLOOD COUNT 11.3 X10'3 (4.5-11.0)
[2019-07-28 05:41] LABS: ALANINE AMINOTRANSFERASE 27 U/L (12-78); ALBUMIN/GLOBULIN RATIO 0.8 (1.1-1.5); ALKALINE PHOSPHATASE 87 IU/L (46-116); ANION GAP 7 (8-16); ASPARTATE AMINO TRANSFERASE 19 U/L (10-37); BILIRUBIN,TOTAL 0.9 MG/DL (0.1-1.0); BLOOD UREA NITROGEN 24 MG/DL (7-18); BUN/CREATININE RATIO 14.6 (5.4-32.0); CALCIUM 8.9 MG/DL (8.5-10.1); CHLORIDE 109 MMOL/L (99-107); CREATININE 1.64 MG/DL (0.60-1.10); GLUCOSE 83 MG/DL (70-104); PHOSPHORUS 3.2 MG/DL (2.3-4.5); SODIUM 141 MMOL/L (135-145); TOTAL CARBON DIOXIDE 25.1 MMOL/L (24-32); TOTAL PROTEIN 6.7 G/DL (6.4-8.2); eGFR 44 ML/MIN
--- NOTE | 2019-07-28 06:30 | NUR ---
Patient in room ICU 2040. I have received report from TAMAR Lebron and had the opportunity to ask questions and assume patient care.
[2019-07-28] MEDS: buPROPion SR 150mg tablet PO SCH (07:36)
[2019-07-28] MEDS: docusate sod 100mg capsule PO SCH ×2 (07:36→20:15)
[2019-07-28] MEDS: famotidine 20mg tablet PO SCH ×2 (07:36→20:15)
[2019-07-28] MEDS: heparin, porcine 5000 units/ml vial SQ SCH ×2 (07:39→20:17)
[2019-07-28] MEDS: labetalol 100mg tablet PO SCH ×3 (07:42→19:11)
[2019-07-28] MEDS: K, MAG and/or Phos replacement - Verify level? MC SCH (07:59)
[2019-07-28] MEDS ORDERED: lisinopril 20mg tablet PO SCH (08:00)
[2019-07-28] MEDS: lisinopril 20mg tablet PO SCH (09:41)
--- NOTE | 2019-07-28 09:46 | NUR ---
Briefly held AM Lisinopril dose d/t BP being around goal of 180/100 (per MD) after AM Labetalol dose. 0930 BP 150/[address] Chapa states ok to give AM Lisinopril after recent BP reading. Dose given. Will continue to monitor.
[2019-07-28] MEDS ORDERED: FLU VACC QS2019-20 36MOS UP/PF 60 MCG/0.5 ML SYRINGE IMVAC ONE (10:00)
[2019-07-28] MEDS ORDERED: pneumococcal 23-VAL P-sac vacc 25 mcg/0.5ml vial IMVAC ONE (10:00)
[2019-07-28] MEDS: ondansetron/PF 4mg/2ml inj IV PRN (10:52)
[2019-07-28] MEDS: acetaminophen 325mg tablet PO PRN (11:09)
--- NOTE | 2019-07-28 11:41 | NUR ---
pt asleep, appears to be resting comfortably. HR occasionally dips to 44 but then quickly increases to 50's/60's. O2 sat occasionally decreases to 80's but then quickly increases to low 90's on RA. Pt doesn't appear to be in distress.
[2019-07-28] MEDS ORDERED: ondansetron/PF 4mg/2ml inj IV ONE (12:15)
--- NOTE | 2019-07-28 12:15 | NUR ---
pt violently vomited this AM, Zofran 4mg administered @1055. Pt layed down and rested and then got back up and started violently vomiting again about an hour and a half later. BP 189/[address] Chapa aware and ordered to give pt another 4mg of Zofran IV. Addendum: 07/28/19 at 1558 by Merari Avalos RN pt has violently vomited 3x today. Zofran x2 given earlier with some positive result. Pt encouraged to eat and drink a little bit earlier when his stomach was settled and pt refused. He's not eaten much food today and has now vomited for the 3rd time. pt returned to resting after vomiting. Addendum: 07/28/19 at 1819 by Merari Avalos RN nausea appears to be better. pt will spontaneously vomit and then stick his finger in the back of his throat to vomit more. then settle and lay down in bed.
[2019-07-28] MEDS: LORazepam 1 MG tablet PO PRN (13:49)
--- NOTE | 2019-07-28 14:34 | NUR ---
BP 201/117 HR 67 and pt sleeping s/p Ativan administration for anxiety. Dr. Chapa aware and stated to order his Labetalol 400mg to be given TID instead of BID and give a dose now. Order adjusted and will give medication.
[2019-07-28] MEDS: hydrALAZINE 20mg/ml inj. IV PRN (17:55)
--- NOTE | 2019-07-28 18:19 | NUR ---
Problems reprioritized. Patient report given, questions answered & plan of care reviewed with TAMAR Bernard.
--- NOTE | 2019-07-28 18:20 | NUR ---
Patient in room ICU 2040. I have received report and had the opportunity to ask questions and assume patient care. Pt received asleep. RR unlabored.Oxygen saturation is 94% on room air. Rhythm is sinus.
[2019-07-29] VITALS (25 sets, daily range): BP systolic 130–186; BP diastolic 67–113
[2019-07-29 05:01] LABS: BASOPHILS # (AUTO) 0.1 X10'3 (0-0.2); BASOPHILS % (AUTO) 0.5 % (0-1); EOSINOPHILS # (AUTO) 0.2 X10'3 (0-0.9); EOSINOPHILS % (AUTO) 1.3 % (0-6); HEMATOCRIT 49.6 % (42.0-52.0); HEMOGLOBIN 16.9 g/dl (14.0-17.9); LYMPHOCYTES # (AUTO) 1.4 X10'3 (1.1-4.8); LYMPHOCYTES % (AUTO) 10.2 % (21-51); MEAN CORPUSCULAR HEMOGLOBIN 29.8 PG (27.0-31.0); MEAN CORPUSCULAR VOLUME 87.7 FL (78-98); MEAN PLATELET VOLUME 8.8 FL (7.4-10.4); MONOCYTES # (AUTO) 0.8 X10'3 (0-0.9); MONOCYTES % (AUTO) 6.1 % (2-12); NEUTROPHILS % (AUTO) 81.9 % (42-75); PLATELET COUNT 292 X10'3 (140-440); RED BLOOD COUNT 5.66 X10'6 (4.70-6.10); RED CELL DISTRIBUTION WIDTH 16.1 % (11.5-14.5); WHITE BLOOD COUNT 13.4 X10'3 (4.5-11.0)
[2019-07-29 05:21] LABS: ALANINE AMINOTRANSFERASE 35 U/L (12-78); ALBUMIN 3.1 G/DL (3.4-5.0); ALBUMIN/GLOBULIN RATIO 0.8 (1.1-1.5); ALKALINE PHOSPHATASE 86 IU/L (46-116); ANION GAP 10 (8-16); ASPARTATE AMINO TRANSFERASE 22 U/L (10-37); BLOOD UREA NITROGEN 20 MG/DL (7-18); BUN/CREATININE RATIO 13.7 (5.4-32.0); CHLORIDE 107 MMOL/L (99-107); CREATININE 1.46 MG/DL (0.60-1.10); GLUCOSE 101 MG/DL (70-104); MAGNESIUM 1.9 MG/DL (1.5-2.4); PHOSPHORUS 3.3 MG/DL (2.3-4.5); POTASSIUM 3.6 MMOL/L (3.5-5.1); SODIUM 141 MMOL/L (135-145); TOTAL CARBON DIOXIDE 24.2 MMOL/L (24-32); eGFR 50 ML/MIN
--- NOTE | 2019-07-29 06:30 | NUR ---
Problems reprioritized. Patient report given, questions answered & plan of care reviewed with Merari BOYLE.
[2019-07-29] MEDS: buPROPion SR 150mg tablet PO SCH (07:44)
[2019-07-29] MEDS: docusate sod 100mg capsule PO SCH ×2 (07:45→19:31)
[2019-07-29] MEDS: famotidine 20mg tablet PO SCH ×2 (07:45→19:31)
[2019-07-29] MEDS: lisinopril 20mg tablet PO SCH (07:45)
[2019-07-29] MEDS: K, MAG and/or Phos replacement - Verify level? MC SCH (07:51)
[2019-07-29] MEDS: labetalol 100mg tablet PO SCH ×3 (08:51→20:07)
[2019-07-29] MEDS: heparin, porcine 5000 units/ml vial SQ SCH ×2 (08:52→19:32)
--- NOTE | 2019-07-29 09:54 | NUR ---
0830 BP 167/106 HR 61. HR ranging from 55-70 this AM. Lisinopril administered this AM, briefly held 400mg Labetalol to clarify order with Dr. Chapa d/t parameter for Labetalol to hold for HR < 60. stated ok to give Labetalol dose even with HR 55. Med administered @ 0851. Pt tolerating well at this time with HR 67 BP 166/94.
[2019-07-29] MEDS ORDERED: FLU VACC QS2019-20 36MOS UP/PF 60 MCG/0.5 ML SYRINGE IMVAC ONE (10:00)
[2019-07-29] MEDS ORDERED: pneumococcal 23-VAL P-sac vacc 25 mcg/0.5ml vial IMVAC ONE (10:00)
--- NOTE | 2019-07-29 11:15 | NUR ---
Initial: Pt admit w/ hypertensive crisis after stopped taking HTN meds per EMR. PO 75-100% meals but did refuse PO yesterday r/t nausea/vomiting. LBM 07/25 receiving routine colace. Probably has CKD III per MD note. Will continue to monitor. Rec: 1. continue heart healthy diet 2. routine bowel care 3. wt per rx Addendum: 07/29/19 at [address] Amended: Links added.
--- NOTE | 2019-07-29 18:14 | NUR ---
Patient in room ICU 2040. I have received report from Merari BOYLE and had the opportunity to ask questions and assume patient care.
[2019-07-30] VITALS (12 sets, daily range): BP systolic 134–189; BP diastolic 67–110
--- NOTE | 2019-07-30 04:00 | NUR ---
Stood up at bedside to urinate. Voided 225 ml charley urine. Oxygen saturation is 94% on room air while awake. Noted sleep apnea with brief desaturation 70% when asleep. HR 43-59 Sinus rhythm. Pt placed on oxygen during the night for brief episodes of desaturation while asleep.
--- NOTE | 2019-07-30 04:59 | NUR ---
Problems reprioritized. Patient report given, questions answered & plan of care reviewed with Wen BOYLE on 3rd floor telemetry..
[2019-07-30 05:06] LABS: BASOPHILS # (AUTO) 0.1 X10'3 (0-0.2); BASOPHILS % (AUTO) 0.7 % (0-1); EOSINOPHILS # (AUTO) 0.3 X10'3 (0-0.9); EOSINOPHILS % (AUTO) 2.9 % (0-6); HEMATOCRIT 51.1 % (42.0-52.0); HEMOGLOBIN 17.2 g/dl (14.0-17.9); LYMPHOCYTES # (AUTO) 1.6 X10'3 (1.1-4.8); MEAN CORPUSCULAR HEMOGLOBIN 29.8 PG (27.0-31.0); MEAN CORPUSCULAR HGB CONC 33.6 g/dL (33.0-36.5); MEAN CORPUSCULAR VOLUME 88.7 FL (78-98); MEAN PLATELET VOLUME 8.7 FL (7.4-10.4); MONOCYTES # (AUTO) 0.7 X10'3 (0-0.9); MONOCYTES % (AUTO) 6.8 % (2-12); NEUTROPHILS # (AUTO) 7.8 X10'3 (1.8-7.7); NEUTROPHILS % (AUTO) 74.6 % (42-75); PLATELET COUNT 300 X10'3 (140-440); RED BLOOD COUNT 5.76 X10'6 (4.70-6.10); RED CELL DISTRIBUTION WIDTH 16.1 % (11.5-14.5); WHITE BLOOD COUNT 10.5 X10'3 (4.5-11.0)
[2019-07-30 05:26] LABS: ALANINE AMINOTRANSFERASE 58 U/L (12-78); ALBUMIN 3.2 G/DL (3.4-5.0); ALBUMIN/GLOBULIN RATIO 0.8 (1.1-1.5); ALKALINE PHOSPHATASE 96 IU/L (46-116); ANION GAP 9 (8-16); ASPARTATE AMINO TRANSFERASE 36 U/L (10-37); BILIRUBIN,TOTAL 0.9 MG/DL (0.1-1.0); BLOOD UREA NITROGEN 24 MG/DL (7-18); BUN/CREATININE RATIO 14.1 (5.4-32.0); CALCIUM 9.1 MG/DL (8.5-10.1); CHLORIDE 109 MMOL/L (99-107); GLUCOSE 80 MG/DL (70-104); PHOSPHORUS 3.6 MG/DL (2.3-4.5); POTASSIUM 3.7 MMOL/L (3.5-5.1); SODIUM 144 MMOL/L (135-145); TOTAL CARBON DIOXIDE 26.2 MMOL/L (24-32); eGFR 42 ML/MIN
--- NOTE | 2019-07-30 05:30 | NUR ---
Pt stable for transport. Pt placed on tele monitor, in wheel chair with all belongings. On oxygen @ 2L NC for transport. Pt in good spirits & cooperative. Pt taken to room 3018A. Stable.
--- NOTE | 2019-07-30 05:45 | NUR ---
Patient arrived to PCU unit at 0545 from ICU via wheelchair. Pt admitted for malignant HTN. Pt denies CP, SOB, dizziness, n/v. Pt is alert and oriented x4.
--- NOTE | 2019-07-30 06:05 | NUR ---
Patient in room PCU 3018. I have received report from TAMAR Flores and had the opportunity to ask questions and assume patient care. Patient sleeping in bed, visible chest rise and fall, no acute distress, bed locked and low, call light in reach, will continue to monitor.
--- NOTE | 2019-07-30 06:10 | NUR ---
Problems reprioritized. Patient report given, questions answered & plan of care reviewed with Madison Anne RN. Patient stable at shift change
[2019-07-30] MEDS: labetalol 100mg tablet PO SCH ×3 (07:19→20:39)
[2019-07-30] MEDS: famotidine 20mg tablet PO SCH ×2 (07:19→20:37)
[2019-07-30] MEDS: docusate sod 100mg capsule PO SCH ×2 (07:20→20:00)
[2019-07-30] MEDS: buPROPion SR 150mg tablet PO SCH (07:21)
[2019-07-30] MEDS: lisinopril 20mg tablet PO SCH (07:21)
[2019-07-30] MEDS: heparin, porcine 5000 units/ml vial SQ SCH ×2 (07:22→20:41)
[2019-07-30] MEDS: K, MAG and/or Phos replacement - Verify level? MC SCH (08:00)
[2019-07-30] MEDS: diltiazem CD 120mg capsule (once-daily) PO SCH (11:25)
--- NOTE | 2019-07-30 15:13 | NUR ---
Noted patient's elevated BP of 176/110, called Dr. Chapa and informed him, no new orders received at this time.
--- NOTE | 2019-07-30 18:12 | NUR ---
Problems reprioritized. Patient report given, questions answered & plan of care reviewed with TAMAR Perla.
--- NOTE | 2019-07-30 18:15 | NUR ---
Patient in room PCU 3018. I have received report from Dayana Wallace RN and had the opportunity to ask questions and assume patient care.
[2019-07-31 03:00] VITALS: BP 166/98
--- NOTE | 2019-07-31 05:59 | NUR ---
Problems reprioritized. Patient report given, questions answered & plan of care reviewed with Dayana BOYLE.
[2019-07-31 06:00] VITALS: BP 163/102
[2019-07-31 06:20] LABS: BASOPHILS # (AUTO) 0.1 X10'3 (0-0.2); BASOPHILS % (AUTO) 0.6 % (0-1); EOSINOPHILS # (AUTO) 0.4 X10'3 (0-0.9); EOSINOPHILS % (AUTO) 3.9 % (0-6); HEMATOCRIT 49.9 % (42.0-52.0); HEMOGLOBIN 16.7 g/dl (14.0-17.9); LYMPHOCYTES # (AUTO) 1.4 X10'3 (1.1-4.8); LYMPHOCYTES % (AUTO) 12.1 % (21-51); MEAN CORPUSCULAR HEMOGLOBIN 29.4 PG (27.0-31.0); MEAN CORPUSCULAR HGB CONC 33.5 g/dL (33.0-36.5); MEAN CORPUSCULAR VOLUME 87.7 FL (78-98); MEAN PLATELET VOLUME 8.6 FL (7.4-10.4); MONOCYTES % (AUTO) 8.9 % (2-12); NEUTROPHILS # (AUTO) 8.6 X10'3 (1.8-7.7); NEUTROPHILS % (AUTO) 74.5 % (42-75); PLATELET COUNT 296 X10'3 (140-440); RED BLOOD COUNT 5.69 X10'6 (4.70-6.10); RED CELL DISTRIBUTION WIDTH 15.9 % (11.5-14.5); WHITE BLOOD COUNT 11.5 X10'3 (4.5-11.0)
[2019-07-31 06:33] LABS: ALANINE AMINOTRANSFERASE 52 U/L (12-78); ALBUMIN/GLOBULIN RATIO 0.8 (1.1-1.5); ALKALINE PHOSPHATASE 91 IU/L (46-116); ANION GAP 9 (8-16); ASPARTATE AMINO TRANSFERASE 23 U/L (10-37); BILIRUBIN,TOTAL 0.9 MG/DL (0.1-1.0); BLOOD UREA NITROGEN 23 MG/DL (7-18); BUN/CREATININE RATIO 13.7 (5.4-32.0); CALCIUM 8.7 MG/DL (8.5-10.1); CHLORIDE 107 MMOL/L (99-107); CREATININE 1.68 MG/DL (0.60-1.10); GLUCOSE 96 MG/DL (70-104); MAGNESIUM 1.8 MG/DL (1.5-2.4); PHOSPHORUS 2.8 MG/DL (2.3-4.5); POTASSIUM 3.7 MMOL/L (3.5-5.1); SODIUM 142 MMOL/L (135-145); TOTAL CARBON DIOXIDE 26.2 MMOL/L (24-32); TOTAL PROTEIN 6.8 G/DL (6.4-8.2); eGFR 43 ML/MIN
[2019-07-31] MEDS: famotidine 20mg tablet PO SCH (07:24)
[2019-07-31] MEDS: diltiazem CD 120mg capsule (once-daily) PO SCH (07:24)
[2019-07-31] MEDS: docusate sod 100mg capsule PO SCH (07:24)
[2019-07-31] MEDS: labetalol 100mg tablet PO SCH ×2 (07:25→12:47)
[2019-07-31] MEDS: buPROPion SR 150mg tablet PO SCH (07:25)
[2019-07-31] MEDS: lisinopril 20mg tablet PO SCH (07:25)
[2019-07-31] MEDS: heparin, porcine 5000 units/ml vial SQ SCH (07:27)
[2019-07-31] MEDS: K, MAG and/or Phos replacement - Verify level? MC SCH (07:33)
[2019-07-31 11:00] VITALS: BP_SYST 163
[2019-07-31] MEDS ORDERED: LABE100T5 PO (14:32)
[2019-07-31] MEDS ORDERED: LISI-600 PO (14:32)
[2019-07-31] MEDS ORDERED: CARCD120C PO (14:32)
--- NOTE | 2019-07-31 15:31 | NUR ---
Received order for patient to discharge to home. Belongings gathered, IV removed, catheter tip intact, hemostasis achieved, obtained a shirt for patient as he did not have one. telemetry removed. Educated patient on discharge medications and disease management, verbalized understanding and stated he would read provided information as he does not remember things well. Patient ambulated out when ride arrived. Stable at time of discharge
[2019-08-01] MEDS ORDERED: diltiazem CD 120mg capsule (once-daily) PO SCH (08:00)
== END 2019-07-31 15:55 | disposition home or self-care (01) | DRG 199 ==
LOC: ER 13:26 → ED HOLD 16:56 → ICU 2S 17:55 → PCU 3S 07-30 05:34
PROVIDERS: ADMIT Internal Medicine Critical Care Medicine; ATTEND Internal Medicine Critical Care Medicine
PROC: 3E02340 Introduction of Influenza Vaccine into Muscle, Percutaneous Approach (ICD-10-PCS; principal; 2019-07-29)
PROC: 3E0234Z Introduction of Serum, Toxoid and Vaccine into Muscle, Percutaneous Approach (ICD-10-PCS; 2019-07-29)
DX: I16.9 Hypertensive crisis, unspecified (principal); N17.9 Acute kidney failure, unspecified; N18.3 Chronic kidney disease, stage 3 (moderate); G80.9 Cerebral palsy, unspecified; J20.9 Acute bronchitis, unspecified; I12.9 Hypertensive chronic kidney disease with stage 1 through stage 4 chronic kidney disease, or unspecified chronic kidney disease; Z79.899 Other long term (current) drug therapy; Z91.14 Patient's other noncompliance with medication regimen; Z23 Encounter for immunization
CPT/HCPCS: 36415; 36600; 71046; 80053; 81001; 82570; 82803; 83735; 84100; 84156; 84484; 85018; 85025; 87081; 90732; 93005; 93306; 93975; 94760; 96365; 97116; 97162; 99291; G0378; J0360; J1644; J2405; J3490; Q2037